=== PATIENT | female | born 2000 | race Caucasian/White ===

== ENCOUNTER → 2025-04-28 | Emergency (ER) | payer BC ==
[~2025-04-28] VITALS: Ht 175.3 cm; Wt 77.1 kg
[~2025-04-28] MED LIST: CEFTRIAXONE SODIUM 1,000 MG VIAL IM STA; CEFTRIAXONE SODIUM 1,000 MG VIAL ONE; CEPHALEXIN500 M1 PO
== END | disposition home or self-care (01) ==
LOC: ER 15:59
DX: S71.121A Laceration with foreign body, right thigh, initial encounter (principal); Y93.11 Activity, swimming; Y93.89 Activity, other specified; Y92.89 Other specified places as the place of occurrence of the external cause